=== PATIENT | male | born 1950 | race Caucasian/White ===

== ENCOUNTER 2018-01-20 19:35 | Inpatient (IN) | payer OTHER, MEDICARE ==
[~2018-01-20] VITALS: Ht 172.7 cm; Wt 81.6 kg
[~2018-01-20 19:35] MED LIST: ACETAMINOPHEN325 M1 PO; ACID CONTROL20 MG PO; ASPIRIN EC325 M1 PO; COLACE100 MG PO; FLEXERIL PO; GLIPIZIDE ER10 MG PO; GLUCOPHAGE1000 MG PO; HYDROCODON-ACE1 EAC7 PO; IBUPROFEN 800800 M1 PO; MOBIC15 MG PO; NORCO 7.5-3251 EACH PO; PERCOCET 5-3251 EACH PO; ROBAXIN 750 MG750 M1 PO; TRULICITY0.75 MG/0.; TYLENOL PM PO; ZESTRIL10 MG PO; ZOCOR 20 MG TAB20 M1 PO
[2018-01-20 19:54] VITALS: BP 130/63
[2018-01-20 20:27] LABS: ABSOLUTE BASOPHILS 0.1 thou/uL (0.0-0.2); ABSOLUTE LYMPHOCYTES 1.5 thou/uL (0.8-5.3); ABSOLUTE MONOCYTES 1.3 thou/uL (0.0-1.2); ABSOLUTE NEUTROPHILS 7.7 thou/uL (1.6-8.1); BASOPHILS 0.7 %; EOSINOPHILS 0.2 %; HEMATOCRIT 41.4 % (42.0-52.0); LYMPHOCYTES 14.4 %; MCH 29.5 pg (26.0-34.0); MCHC 33.9 g/dL (28.0-37.0); MONOCYTES 12.6 %; MPV 7.5 fl. (7.2-11.1); NUCLEATED RBCS 0 /100WBC; PLATELET COUNT* 150 thou/uL (150-400); POLYS 72.1 %; RBC 4.76 mil/uL (4.50-6.00); RDW-CV 13.8 % (10.5-14.5); WBC 10.7 thou/uL (4.0-11.0)
[2018-01-20 20:35] LABS: CALCIUM 8.4 mg/dL (8.5-10.1); CREATININE 1.6 mg/dL (0.6-1.3); POTASSIUM 4.2 mmol/L (3.5-5.1)
[2018-01-20 20:36] LABS: INFLUENZA A ANTIGEN None Detected (None Detect)
[2018-01-20 22:27] VITALS: BP 130/63
[2018-01-20 22:51] VITALS: BP 117/56
[2018-01-20] MEDS ORDERED: CELEBREX 200 M200 M1 PO (23:28)
[2018-01-20] MEDS ORDERED: GLUCOSAMINE HC500 MG PO (23:29)
[2018-01-21 04:00] VITALS: BP 164/88
--- NOTE | 2018-01-21 05:46 | NUR ---
PT ARRIVED ON UNIT AT 2245. PT ORIENTED TO ROOM, CALL LIGHT SHOWN, FALL AGREEMENT SIGNED, PT STATED UNDERSTANDING. ASSESSMENT DOCUMENTED. MEDS GIVEN PER E-MAR. IV PATENT. NO REPORTS OF PAIN OR NAUSEA. PT REPORTED SHAKINESS AND DIFFICULTY BREATHING ABOUT 5 MINUTES AFTER A BREATHING TREATMENT, VSS, O2 SAT WAS 96%, BLOOD GLUCOSE CHECKED, ABOUT 5 MINUTES AFTER PT WAS NO LONGER SHAKEY AND HIS BREATHING WAS BACK TO BASELINE. PT SLEPT REST OF NIGHT. NO CONCERNS AT THIS TIME.
[2018-01-21 09:25] VITALS: BP 132/69
[2018-01-21 16:00] VITALS: BP 125/63
--- NOTE | 2018-01-21 18:36 | NUR ---
PATIENT HAS BEEN ALERT AND ORIENTED TODAY VERY PLEASANT. PATIENT IS UP AD MANDI IN ROOM WITH OXYGEN EXTENSION TUBING. IS SHORT OF AIR WITH EXERTION BUT RECOVERS QUICKLY WITH OXYGEN. OXYGEN IS RUNNING AT 2 LITERS THROUGH NASAL CANNULA. VITAL SIGNS HAVE BEEN STABLE. NO COMPLAINTS OF ANY PAIN TODAY. BLOOD SUGAR CONTROL ISSUES EARLIER TODAY THAT HAVE RESOLVED WITH INSULIN. CALL LIGHT IS IN REACH, CALLS FOR HELP WHEN NEEDED. WILL CONTINUE TO MONITOR.
[2018-01-21 20:15] VITALS: BP 121/61
--- NOTE | 2018-01-22 06:13 | NUR ---
PT SLEPT ON AND OFF THIS SHIFT. ASSESSMENT DOCUMENTED. MEDS GIVEN PER E-JAN. NO REPORTS OF PAIN OR NAUSEA. IV PATENT. Q4 ACCU CHECKS DONE AND INSULIN GIVEN PER E-JAN. PT REQUESTED SOMETHING FOR SLEEP, NOTIFIED, ORDERS RECIEVED. PT REPORTED FEELING MORE CONGESTED BUT DID NOT WANT TO TAKE ANYTHING FOR THE CONGESTION AT THIS TIME. WILL CONTINUE PLAN OF CARE.
[2018-01-22 09:00] VITALS: BP 116/59
[2018-01-22 16:28] VITALS: BP 124/56
--- NOTE | 2018-01-22 18:11 | NUR ---
PATIENT IS ALERT AND ORIENTED TODAY VERY PLEASANT AND UP AD MANDI. PATIENT HAS BEEN ABLE TO BE ON ROOM AIR TODAY WITH STABLE VITAL SIGNS. PATIENT HAS HAD NO COMPLAINTS TODAY OF ANY KIND. CALL LIGHT IS IN REACH, CALLS FOR HELP IF NEEDED. WILL CONTINUE TO MONITOR.
[2018-01-22 21:00] VITALS: BP 111/62
[2018-01-23 03:58] LABS: HEMATOCRIT 39.4 % (42.0-52.0); HEMOGLOBIN 13.5 gm/dL (14.0-18.0); MCH 29.3 pg (26.0-34.0); MCHC 34.2 g/dL (28.0-37.0); MCV 85.6 fL (80.0-100.0); MPV 7.7 fl. (7.2-11.1); RBC 4.61 mil/uL (4.50-6.00); RDW-CV 13.8 % (10.5-14.5); WBC 6.1 thou/uL (4.0-11.0)
[2018-01-23 04:10] LABS: CALCIUM 8.4 mg/dL (8.5-10.1); POTASSIUM 4.4 mmol/L (3.5-5.1)
--- NOTE | 2018-01-23 05:38 | NUR ---
PT SLEPT ON AND OFF THIS SHIFT. ASSESSMENT DOCUMENTED. MEDS GIVEN PER E-JAN. IV PATENT. NO REPORTS OF PAIN OR NAUSEA. PT DID NOT REQUIRE OXYGEN THIS SHIFT. WILL CONTINUE WITH PLAN OF CARE.
[2018-01-23 08:00] VITALS: BP 143/70
[2018-01-23] MEDS ORDERED: OSELB75 PO (10:45)
[2018-01-23] MEDS ORDERED: LEVAQUIN 500 M500 M2 PO (10:45)
[2018-01-23] MEDS ORDERED: BENZONATATE100 MG PO (10:45)
--- NOTE | 2018-01-23 11:15 | NUR ---
PT'S MEDICAL CHART REVIEWED AND STATUS DISCUSSED W/ NSG. PT DEMO INDEP TRANSFERS AND GAIT W/O DME SUPPORT IN ROOM. PT VOICES NO CONCERNS W/ DISCHARGE TO HOME ENVIRONMENT. NO FURTHER ACUTE PT SERVICES ARE INDICATED.
--- NOTE | 2018-01-23 11:53 | NUR ---
ASSUMED PT CARE AT 0730, FULL ASSESMENT DONE CHARTED. PT A/O X4, UP AD MANDI, VSS, O2 SAT 96% ON RA. PT HOPING TO GO HOME TODAY. DR WILLIAM GAVE DISCHARGE ORDERS. PT USES CALL LIGHT APPROPRAILTY, WILL CONTINUE WITH PLAN OF CARE.
[2018-01-23 14:14] VITALS: BP 143/70
== END 2018-01-23 16:30 | disposition home or self-care (01) | DRG 177 ==
LOC: M.ERS 19:35 → M.3W 21:47 → M.TBA-ER 21:47 → M.3W 22:34
PROVIDERS: Emergency Medicine; Internal Medicine; ADMIT Internal Medicine
DX: J10.08 Influenza due to other identified influenza virus with other specified pneumonia (principal); N17.0 Acute kidney failure with tubular necrosis; J15.6 Pneumonia due to other Gram-negative bacteria; J96.00 Acute respiratory failure, unspecified whether with hypoxia or hypercapnia; J15.9 Unspecified bacterial pneumonia; I10 Essential (primary) hypertension; E78.5 Hyperlipidemia, unspecified; E11.65 Type 2 diabetes mellitus with hyperglycemia; Z79.899 Other long term (current) drug therapy